=== PATIENT | male | born 1975 | race Hispanic/Latino ===

== ENCOUNTER 2016-07-01 17:21 | Emergency (ER) | payer OTHER ==
[~2016-07-01] VITALS: Ht 182.9 cm; Wt 90.1 kg
[2016-07-01 17:22] VITALS: BP 142/92; PULSE 72; RESP 14; O2SAT 98
--- NOTE | 2016-07-01 17:52 | ED.REPORT ---
HPI-Extremity Problem Upper Date of Service Jul 01, 2016 ED Provider: Westley Kimble MD The patient is a 40 year old male who presents to the emergency department complaining of left wrist pain that began earlier today after he had a ground level fall at work. The patient states he was carrying wood when he tripped and fell to the ground. He caught himself with his left wrist. He hit his head on something but did not lose consciousness. He denies any other injuries or traumas. Nursing Notes Stated Complaint: LEFT WRIST PAIN Chief Complaint: Multiple Trauma/Fall Nursing Notes Reviewed: Yes Scheduled PRN Hydrocodone-Acetaminophen 5-325 mg (Hydrocodone-Acetaminophen 5-325 mg) 1 Each Tablet 1 TABLET PO Q4H PRN PRN For Pain General Time Seen by MD: 17:51 Chief Complaint Wrist injury left Hx Obtained From: Patient Arrived By: Walk-in Onset Occurred: 1 - 4 hours ago Symptom Duration: Since onset Caused by: Fall on ground Context: Occurred at: Workplace Location: : Wrist left Quality: Painful Severity: Current: Moderate Severity: Maximum: Moderate Additional Notes: +facial contusion Pertinent Negative: Pt denies other symptoms Recent Healthcare: No recent doctor visit, No recent hospitalization Similar Sx Previous: No Past Medical History Past Medical History Denies Family History Noncontributory Smoking History Never Smoker Social History Other Social History: Local resident Ambulatory Status Independent Review of Systems Review of Systems Note: +facial contusion Musculoskeletal: Reports: Extremity pain, Joint pain Neurologic: Denies: Change LOC, Syncope Complete sys rev & neg: except as marked. Physical Exam Initial Vital Signs Vital Signs (First) Date Time Temp Pulse Resp B/P Pulse Ox O2 Delivery O2 Flow Rate FiO2 07/01/16 17:22 36.7 72 14 142/92 98 Room Air Initial VS: Reviewed ENT: Mucous membranes moist, Conjunctiva normal, No scleral icterus Neck: Supple, Non-tender, Full range of motion Respiratory: Breath sounds normal, Clear to auscultation, No respiratory distress Cardiovascular: Regular rate & rhythm, Heart sounds normal, Intact distal pulses Abdomen / GI: Soft, Non-tender, No guarding, No rebound, No distention Lymphatic: No lymphadenopathy Lower Extremities: Vascular intact, Neuro intact, No swelling, No tenderness Skin: Warm, Dry, No cyanosis Neurologic: Alert, Oriented, Nonfocal Psychiatric: Mood/affect normal, Behavior normal, Normal thought content General/Constitutional: Awake, Alert, Cooperative Wrist / Hand: Neurologic intact, Vascular intact There is swelling and deformity about the region of his left distal radius. His fingertips are warm and well perfused. Sensation is intact. Good radial pulses. No evidence of compartment syndrome. Head / Eyes: Normocephalic, PERRL, EOMI Superficial abrasion overlying his right maxillary region with no palpable deformity or crepitus. Interpretation & Diagnostics X-Ray Interpretation Xray Interpretation: Left distal radial fracture X-Ray Ordered: Wrist left Interpretation / Wet Read by: Wet read ED physician Procedures Splint Application - Fx Mgt Time: 18:45 Procedure Performed by: Loan Workout Officer Precise Anatomic Location: left wrist Type of Immobilization: Sugar tong Definitive Fracture Care: Pain control, Splint, Follow up > 4 days Post-Procedure / Complications: Cap refill normal, Post splint vascular nl, Post splint neuro nl, Condition improved, Tolerated procedure well, Patient stable Splint Post-Application Eval Extremity Condition: Cap refill < 2 sec, Distal sensation intact, Distal motor Intact, No compartment syndrome Re-Eval/Medical Decision Med Decision/Clinical Course The patient is a generally healthy 40-year-old male who presents with left wrist pain, swelling and deformity after ground-level fall that occurred just prior to arrival. Examination reveals obvious deformity and swelling of his left wrist however he is neurovascularly intact with good sensation to the fingertips, full range of motion of his fingers and good radial pulse. X-ray demonstrates comminuted interarticular left distal radius fracture. Currently displaced fragments however I do not feel that attempted reduction at the bedside will provide much improvement. Therefore the patient was placed in a sugar tong splint and remained neurovascularly intact thereafter. His pain was treated with oxycodone and he is provided with a prescription for [place]. He will call first thing tomorrow to arrange for follow-up with orthopedic surgery. Remainder of survey reveals no other significant injuries. Prior to discharge follow-up and return precautions were reviewed in detail with the patient who verbalized understanding and agreement with the plan. The patient was discharged in stable condition. Source of Hx: Old records Re-Evaluation/Progress : Time of Eval: 18:45 Re-Evaluation/Progress Note: Discussed x-ray results, diagnosis, and plan for discharge. All questions were addressed. Counseled Regarding: Diagnosis, Need for follow-up, When/why to return to ED Discharge & Departure Impression: Primary Impression: Fall from ground level Additional Impressions: Facial contusion Encounter type: initial encounter Qualified Code: S00.83XA - Contusion of other part of head, initial encounter Distal radial fracture Encounter type: initial encounter Fracture type: closed Fracture morphology : other fracture Laterality: left Qualified Code: S52.592A - Other fractures of lower end of left radius, initial encounter for closed fracture Disposition: Home Discharge Condition All VS Reviewed: Yes Condition: Stable Additional Instructions: Thank you for seeking care at the emergency room. Your x-ray today does show evidence of a distal radial fracture. Our primary goal today in the ED was to evaluate you for any life-threatening conditions. Your evaluation was reassuring. You will be discharged with a prescription for pain medication. You should follow-up with an orthopedic surgeon in the next few days. We have given you a referral to Dr. Harley. Please call tomorrow to schedule an appointment. You should return to the ED immediately if you develop increased pain or swelling, fevers, vomiting, or any other concerning signs or symptoms. Thank you for letting us partake in your care today. Narcotic Pain Medicine You have been prescribed a narcotic for pain relief. These drugs are usually combined with acetaminophen (Tylenol#3, Percocet, Darvocet, Anexsia, Vicodin) or aspirin (Empirin#3, Percodan, Synalogs-DC) for increased effect. Narcotics act on the central nervous system to reduce pain; they also impair mental alertness and physical abilities. We advise you not to drink alcohol, drive a car, or operate dangerous equipment when you are taking these drugs. You can lessen stomach irritation from your medicine by taking it with meals or a full glass of water. Common side effects of narcotics are: Nausea and vomiting, heartburn, constipation, dizziness, sleepiness, and mood changes. If you have bothersome side effects or symptoms of an allergic reaction (itching, hives, rash), stop taking your medicine and call your doctor or the emergency room right away. Please keep your narcotic medicine well out of the reach of children. Referrals: Naun Harley MD Scribe Attestation Portions of this note were transcribed by Shayla Thomas. I, Dr. Kimble personally performed the history, physical exam and medical decision-making; I reviewed and confirmed the accuracy of the information in the transcribed note. Signed by: Luis Rosales, 07/01/2016 at 1915. copies to: Naun Harley MD, Beck O MD Jul 01, 2016 17:52 Shayla Thomas Jul 01, 2016 17:53
[2016-07-01] MEDS ORDERED: HYDR-4003 PO (18:54)
--- NOTE | 2016-07-01 19:58 | DRSVH ---
PROCEDURE: X-RAY LEFT WRIST COMPLETE, MINIMUM THREE VIEWS ([id number]) INDICATIONS: left wrist pain ,deformity TECHNIQUE: 4 views of the wrist were acquired. COMPARISON: None. FINDINGS: Bones: There is a complex comminuted distal radius fracture, intra-articular, with mild impaction an d displacement dorsally of the distal radius articular surface. In contrast, no fracture is seen inv olving the distal ulna or the carpal bones. No suspicious bony lesions. Scaphoid view: No scaphoid fracture is found. Soft tissues: No suspicious soft tissue calcifications. IMPRESSION: Complex comminuted impacted and dorsally angulated distal radius intra-articular fractur e. No carpal fracture found, the ulna appears intact. Dictated by: Jamil Mcmillan M.D. on 07/01/2016 at 19:56 Approved by: Jamil Mcmillan M.D. on 07/01/2016 at 19:57
== END 2016-07-01 19:50 | disposition home or self-care (01) ==
LOC: SED 17:21
DX: S52.572A Other intraarticular fracture of lower end of left radius, initial encounter for closed fracture (principal); S00.83XA Contusion of other part of head, initial encounter; W01.10XA Fall on same level from slipping, tripping and stumbling with subsequent striking against unspecified object, initial encounter; Y93.89 Activity, other specified; Y92.69 Other specified industrial and construction area as the place of occurrence of the external cause; Y99.0 Civilian activity done for income or pay

== ENCOUNTER 2016-07-10 11:09 | Day surgery (SDC) | payer OTHER ==
[2016-07-10] VITALS (11 sets, daily range): BP systolic 126–145; BP diastolic 78–94; PULSE 66–72; RESP 11–15; O2SAT 97–100
[~2016-07-10] VITALS: Ht 182.9 cm; Wt 89.0 kg
--- NOTE | 2016-07-10 07:16 | PCM.HPANE ---
Patient Data Surgeon Admitting Provider: Attending Provider:Naun Harley MD Primary Care Physician:Nopcp Other Provider:Joni Farrell Anesthesia Reason for Visit Left Distal Radius Fracture Ht/WT & BMI Height (Feet): 6 Height (Inches): 0 Weight (Kilograms): 89.18 Body Mass Index 26.00 Allergies Coded Allergies: No Known Allergies (Unverified , 07/08/16) Past Anesthesia History Anesthesia History: Denies:: Abnormal Airway, Anesthesia Reactions, Difficult Intubation, Fam Anesthesia Reaction Diabetes History Hx Diabetes?: No MRSA MRSA: No Medications Hypertension Medication: No Home Meds Incl Beta [place]: No Active Scripts Hydrocodone-Acetaminophen 5-325 mg 1 Each Tablet1 Tablet PO Q4H PRN For Pain # 20 TABLET Prov:Westley Kimble MD 07/01/16 History History of ENT Problems?: No HEENT History: Denies:: Abnormal Airway Difficult Intubation Dysphagia Hearing Problem Sinus Problem TMJ Hx of Heart Problems?: No Cardiovascular History: Denies:: Congestive Heart Failure Hypertension Hx of Respiratory Problem?: No Respiratory History: Denies:: Asthma COPD Emphysema Oxygen Administration Tuberculosis Use of C-PAP Machine Hx Neurologic Problems?: No Neurological History: Denies:: CVA Headaches Multiple Sclerosis Parkinson's Disease Seizures TIA Gastrointestinal History: Denies:: Cirrhosis Gall Bladder Disease Gastroesphageal Reflux Heartburn Hx of Problems?: No Genitourinary History: Denies:: Kidney Stones Urinary Tract Infection Male Hx: Denies:: Prostate Problems Skin History: Denies:: History Skin Disorders? Pressure Ulcers Hx Musculoskeletal Problems?: Yes Musculoskeletal History: Positive for:: Musculoskeletal Trauma (left arm fx- current admission problem - DOI 07/01/16) Denies:: Back Injury Fibromyalgia Joint Replacement Osteoarthritis Hx of Psycho/Social Problems?: No Hx Surgeries?: Yes (remote hx foot surgery) Hx Any Other Health Problems?: Yes Other History: Denies:: Cancer Thyroid Disease Hx Diabetes: No Hx Alcohol Use: YesAlcoholic Drinks Per Day: approx 20 drinks weeklyHx Substance Use: No Smoking Status: Never Smoker Stop/Bang S-Snoring: Do You Snore Loudly: No T-Tired: feel tired, fatigued: No O-Obsered: Observed not breath: No P-Blood Pressure: treated: No B- Body Mass Index > 35 kg/m2: No A- Age over 50: No N- Neck Large Circumference: No G- Gender Male: Yes LUDY Total Score: 1 LUDY Risk Assessment: Low Risk, <3 Yes Risk Assessment Category Category 1A: Patient has history of documented sleep apnea, and HAS NOT received any narcotic, sedative or anesthesia administration during this stay. Category 1B: Patient has history of documented sleep apnea, and HAS received any narcotic , sedative or anesthesia administration during this stay Category 2: Patient has SUSPECTED Obstructive Sleep Apnea, and HAS received any narcotic , sedative or anesthesia administration during this stay. Category 3: Patient has SUSPECTED Obstructive Sleep Apnea and HAS NOT received narcotic, sedative or anesthesia administration during this stay. Category 4: Outpatient in Procedural Areas with known sleep apnea or who screen positive for High Risk via the STOP/BANG questionnaire. Exam Exam General Appearance: Alert, Oriented X3, Cooperative, No Acute Distress HEENT/AIRWAY: MP 1 Lungs: Normal Air Movement Heart: Exam Unremarkable Plan Impression Patient chart reviewed, patient interviewed and anesthestic plan with risks, benefits, and alternatives discussed, and informed consent obtained. ASA Physical Status: ASA1 Normal Healthy Anesthetic Plan: GA Bene/Risks/Altern/Consents: Yes HP Complete Prior to Induction: Yes Jamil Wilson MD Jul 10, 2016 07:16
[~2016-07-10 11:09] MED LIST: CeFAZolin 2 Gm/50 mL D5W IV Premix IV ONE; HYDR-4003 PO; Lactated Ringer's 1,000 ML IV SCH
[2016-07-10] MEDS ORDERED: Propofol 10,000 mCg/mL 20 mL Inj ONE (11:10)
[2016-07-10] MEDS ORDERED: Dexamethasone 4 mg/mL Inj ONE (11:10)
[2016-07-10] MEDS ORDERED: Ondansetron 2 mg/mL 2 mL Inj ONE (11:10)
[2016-07-10] MEDS ORDERED: fentaNYL-PF 50 mCg/mL 2 mL Inj ONE (11:10)
[2016-07-10] MEDS ORDERED: Lactated Ringer's 1,000 ML IV ONE (11:31)
[2016-07-10] MEDS ORDERED: CeFAZolin Inj 2 gm / 50mL D5W IV ONE (12:07)
[2016-07-10] MEDS ORDERED: Ropivacaine-PF 0.5% 30 mL Inj INFILTRATE ONE (14:04)
[2016-07-10] MEDS ORDERED: Bacitracin 50,000 unit Inj IRRIGATION ONE (14:04)
[2016-07-10] MEDS ORDERED: HYDROcodone-APAP 5-325 mg Tablet PO PRN (15:00)
--- NOTE | 2016-07-10 15:05 | PCM.ORTHOP ---
Orthopedic Operative Report Date of Service: Jul 10, 2016 Pre Operative Diagnosis Left distal radius fracture, intra-articular Post Operative Diagnosis Same Procedure Left distal radius open reduction internal fixation, intra-articular > 3 pieces Surgeon Surgeon: Naun Harley MD Assistants: Pedro Garcia Indication for Procedure Left distal radius fracture Findings Per dictation Details of Procedure Findings: comminuted intraarticular fracture of distal radius, fluoroscopic imaging after ORIF shows good alignment of distal radius and no hardware complications Specimens: None Patient Status: Patient was extubated and taken to recovery room in stable condition. Procedure: Indications: Lee Guadalupe is a 40-year-old male with a left distal radius fracture after fall on outstretched hand. A clear explanation was given to the patient regarding the condition present, and the available conservative and surgical options. It was emphasized that the risks and benefits of surgery include but are not limited to infection, wound healing problems, damage to adjacent structures such as nerves, blood vessels and tendons, terminal make up operator disability and pain, arthritis, hypersensitivity, deep vein thrombosis, pulmonary embolism, broken hardware, failure of surgery, need for further procedures at time of surgery or later, cast related problems, loss of limb or life. The patient was given an explanation and the patient voiced understanding of what to expect after the procedure or surgery, the limitations in activities of daily living, the likely duration for post operative recovery and the instructions that are to be followed. At the end the patient was invited to seek clarification or ask further questions but there were none. The patient voiced understanding of the entire consultation. Description of Procedure: Patient was taken to operating room and transferred to operating table in supine position. Time out was performed with both anesthesia and orthopaedics faculty present to confirm details of case to be performed. After time out performed, patient placed under general anesthesia and endotracheal tube secured into place. Once endotracheal tube secured, proximal arm tourniquet was placed over softroll and secured with tape. Patient position was again checked to ensure all bony prominences adequately padded. The left arm was prepped and draped in the usual sterile fashion to the level of the tourniquet. The left upper extremity was then exsanguinated with an esmark and the tourniquet was then inflated to 250 mmHG. Incision was made approximately 7 cm long over the course of the flexor carpi radialis (FCR) tendon. Hemostasis was controlled with electrocautery. The flexor carpi radialis tendon sheath was identified. The sheath was then entered with tenotomy scissors and released. The FCR tendon sheath was dissected distally to the level of the superficial radial artery. The FCR tendon was retracted towards the ulna to protect the median nerve. At this time the radial artery was identified and protected and retracted towards the radial side. Incision through the floor of the FCR sheath was performed. The pronator quadratus was identified and released by sharp dissection over the radial and distal edge by making a L incision. A periosteal elevator was used to elevate the pronator quadratus to expose the volar surface of the radius. The fracture site was identified and the distal fragment was released and freed up using a freer elevator. The extent of comminution was appreciated at this time. There was noted comminution readily apparent with elevation of the distal fragment. The fracture site was debrided with a rongeur and curette. The fracture was reduced with bone reduction clamps and secured with K-wires. This was confirmed with fluoroscopy. Once the distal fragments were mobilized the fracture was then reduced by placing the Arthrex volar plate on the radial shaft and securing it distally with 2 K-wires through the plate. After verifying plate alignment and location of the wires close to subchondral bone, the distal row was fixed with screws. Then using a buttress effect the distal fragments were levered into a reduced position and secured with cortical shaft screws. Fluoroscopy confirmed acceptable reduction. Once the plate placement was appropriate the distal drill holes were drilled and filled with socking screws. Proper plate alignment and screw placement was checked once more with fluoroscopy in both the AP and lateral views. Final plate position was confirmed with orthogonal views with fluoroscopy imaging that was saved in PACs. The DRUJ was noted to be stable while performing fluoroscopic exams. Wound was then thoroughly irrigated with NS. The pronator quadratus was reapproximated with 4-0 Vycril suture. Subcutaneous closure completed with 4-0 Vycril suture and skin closure with 3-0 Nylon suture. Sterile dressing was placed on the incision as well as the hand and forearm which was then wrapped with soft roll. A volar resting splint was applied to the left forearm and wrapped with Tru wraps. A shoulder sling was also placed for comfort. Patient was then awoken from anesthesia and extubated, his neurovascular status was intact when checked in PACU. Patient tolerated procedure well and there were no complications. I was present and scrubbed for the entire procedure. OUTSIDE PROPERTY AGENT SURGEON: During the operation, the services of physician surgical assistant certified were medically indicated and necessary to provide exposure of the operative site for the surgical procedure and to maintain the limb in a proper position to carry out the operation safely and efficiently. Without the qualified assistant manager being present, it would have extended the operative procedure and made the procedure technically more difficult to perform. Please keep dressing clean dry and intact. Do not remove dressing until follow- up in clinic. Do not weight-bear on the affected extremity. You will follow up in clinic in 10-14 days for suture removal, and placement of new Steri- Strips. You will follow-up with me in clinic with new x-rays at this time. You will follow-up with me at 6 weeks postop and may start weightbearing as tolerated when radiographic healing noted which may take an additional 2-4 weeks. Please keep the affected extremity elevated when possible. You may use ice and/or heat as needed for comfort (preferably ice during the first 48-72 hours). Please feel free to call with any further questions, comments, and/or concerns. You have been given medications for pain, medication for possible constipation which is a side affect of the pain medications, as well as vitamin C (500mg qdaily X 50 days). Grafts, Implants: Implants-See Implant Record Complications There were no periprocedural complications identified. Condition Stable Anesthetic Administered: GA Catheters: None Output, Estimated Blood Loss: 20 Blood Admin during surgery: No Surgical Cast or Splint: Short Arm Splint Surgical Specimen Removed: No Specimen sent to Pathology: No copies to: Naun Harley MD, Christopher L MD Jul 10, 2016 15:05
--- NOTE | 2016-07-10 16:44 | PCM.ANEP1 ---
Post Anesthesia Phase 1 PACU Phase 1 Assessment Date of Service: Jul 10, 2016 Vital Signs see anesthesia record Vital Signs Date Time Temp Pulse Resp B/P Pulse Ox O2 Delivery O2 Flow Rate FiO2 07/10/16 16:08 70 15 135/85 100 Room Air 07/10/16 15:55 69 14 140/79 100 Room Air 07/10/16 15:50 66 14 143/80 99 07/10/16 15:45 66 11 136/86 99 Room Air 07/10/16 15:40 36.2 67 15 139/82 100 Room Air 07/10/16 15:35 68 14 141/86 98 Room Air 07/10/16 15:30 72 15 145/94 99 Room Air 07/10/16 15:25 68 14 140/84 99 Room Air 07/10/16 15:20 72 13 144/90 98 Room Air 07/10/16 15:17 36.2 70 14 136/92 97 Room Air 07/10/16 11:30 36.6 66 14 126/78 97 Room Air Anesthetic Administered: GA Level of Alertness: Awake, talking WAN's with Equal Strength: Yes Pain: No Nausea or Vomiting: No Oxygen Delivery: Room Air Lungs: Normal Air Movement Jamil Wilson MD Jul 10, 2016 16:44
--- NOTE | 2016-07-10 16:44 | PCM.ANEP2 ---
Post Anesthesia Evaluation ASA/CMS Post Anesthesia VS in Patient's Normal Range?: Yes Resp Stable; Airway Patent?: Yes CV Function & Hydration Stable: Yes Mental Status Recovered?: Yes Pain control Satisfactory?: Yes N/V Control Satisfactory?: Yes Jamil Wilson MD Jul 10, 2016 16:44
== END 2016-07-10 23:59 | disposition home or self-care (01) ==
LOC: SAS 11:09
PROVIDERS: ATTEND Orthopaedic Surgery
DX: S52.572A Other intraarticular fracture of lower end of left radius, initial encounter for closed fracture (principal); W17.89XA Other fall from one level to another, initial encounter; Y93.H3 Activity, building and construction; Y92.61 Building [any] under construction as the place of occurrence of the external cause; Y99.0 Civilian activity done for income or pay
CPT/HCPCS: 25609; C1713; J0690; J1100; J1885; J2250; J2405; J2795; J3010; J7120